=== PATIENT | female | born 1990 | race Caucasian/White ===

== ENCOUNTER 2020-12-30 03:59 | Emergency (ER) | payer OTHER ==
[~2020-12-30] VITALS: Ht 170.2 cm; Wt 70.8 kg
== END 2020-12-30 05:00 | disposition home or self-care (01) ==
LOC: ER 03:59
DX: S29.011A Strain of muscle and tendon of front wall of thorax, initial encounter (principal); X58.XXXA Exposure to other specified factors, initial encounter
CPT/HCPCS: 71046; 96372; 99283-25; J1885